=== PATIENT | female | born 1975 | race African-American/Black ===

== ENCOUNTER 2021-08-20 04:40 | Day surgery (SDC) | payer BC ==
[2021-08-19 08:40] VITALS: BMI 41.0
[2021-08-20] MEDS ORDERED: ceFAZolin SODIUM 1 GM VIAL IVPB ONE (13:15)
[2021-08-20] MEDS ORDERED: LIDOCAINE 1%/EPI 1:100000 (20 ML MULTI DOSE VIAL) INF ONE (13:29)
[2021-08-20] MEDS ORDERED: BUPIVACAINE HCL/PF 0.5% (5MG/ML) 10 ML VIAL NR ONE (13:29)
[2021-08-20] MEDS ORDERED: ONDANSETRON 4 MG/2 ML VIAL IVPUSH PRN (14:23)
[2021-08-20] MEDS ORDERED: oxyCODONE HCL 5 MG TABLET PO PRN (14:23)
[2021-08-20] MEDS ORDERED: LACTATED RINGERS SOLUTION 1,000 ML IV SCH (14:30)
[2021-08-20 16:33] VITALS: BP 118/65; PULSE 70; TEMP 98
== END 2021-08-20 16:41 | disposition home or self-care (01) ==
LOC: JASU-SURG 04:40
PROVIDERS: ATTEND Surgery
PROC: 0JB70ZZ Excision of Back Subcutaneous Tissue and Fascia, Open Approach (ICD-10-PCS; principal; 2021-08-20 12:00)
DX: D48.1 Neoplasm of uncertain behavior of connective and other soft tissue (principal)
CPT/HCPCS: 81025; 88304-TC; 94760